=== PATIENT | male | born 1980 | race Caucasian/White ===

== ENCOUNTER 2021-08-19 19:24 | Emergency (ER) | payer OTHER ==
[~2021-08-19] VITALS: Ht 182.9 cm; Wt 83.9 kg
[2021-08-19 19:40] VITALS: BP 122/84
== END 2021-08-19 21:12 | disposition left against medical advice (07) ==
LOC: M.ERS 19:24
DX: T15.90XA Foreign body on external eye, part unspecified, unspecified eye, initial encounter (principal); Z53.21 Procedure and treatment not carried out due to patient leaving prior to being seen by health care provider